=== PATIENT | female | born 1935 | race Caucasian/White ===

== ENCOUNTER 2020-06-17 12:30 | Inpatient (IN) | payer OTHER ==
[~2020-06-17] VITALS: Ht 152.4 cm; Wt 68.0 kg
[2020-06-17] MEDS ORDERED: TOPROL XL25 M1 (12:36)
[2020-06-17] MEDS ORDERED: MICARDIS40 MG (12:37)
[2020-06-17] MEDS ORDERED: CLONAZEPAM0.5 MG (12:37)
[2020-06-17] MEDS ORDERED: CRESTOR10 MG (12:39)
[2020-06-22] MEDS ORDERED: TOPROL XL25 M1 PO (16:45)
[2020-06-22] MEDS ORDERED: BISACODYL5 MG PO (16:45)
[2020-06-22] MEDS ORDERED: LOSARTAN POTAS100 MG PO (16:45)
[2020-06-22] MEDS ORDERED: ST. JOSEPH ASPI81 M2 PO (16:45)
[2020-06-22] MEDS ORDERED: AMOX-CLAV 875-1 EACH PO (16:45)
[2020-06-22] MEDS ORDERED: CLONAZEPAM0.5 MG PO (16:45)
[2020-06-22] MEDS ORDERED: INTESTINEX680 M1 PO (16:45)
[2020-06-22] MEDS ORDERED: LIPITOR20 MG PO (16:45)
== END 2020-06-22 21:19 | disposition home health service (06) | DRG 65 ==
LOC: ER 12:30 → MEDI 21:58
PROVIDERS: ADMIT Internal Medicine; ATTEND Internal Medicine
PROC: BW28ZZZ Computerized Tomography (CT Scan) of Head (ICD-10-PCS; principal; 2020-06-17)
PROC: B345ZZZ Ultrasonography of Bilateral Common Carotid Arteries (ICD-10-PCS; 2020-06-17)
PROC: B030YZZ Magnetic Resonance Imaging (MRI) of Brain using Other Contrast (ICD-10-PCS; 2020-06-17)
PROC: B24BZZZ Ultrasonography of Heart with Aorta (ICD-10-PCS; 2020-06-18)
DX: I63.89 Other cerebral infarction (principal); N39.0 Urinary tract infection, site not specified; E78.5 Hyperlipidemia, unspecified; I10 Essential (primary) hypertension; B95.1 Streptococcus, group B, as the cause of diseases classified elsewhere; Z91.81 History of falling; K59.09 Other constipation
CPT/HCPCS: 70552